=== PATIENT | male | born 1955 | race Asian ===

== ENCOUNTER 2016-05-31 10:29 | Emergency (ER) | payer OTHER ==
[~2016-05-31] VITALS: Ht 180.3 cm; Wt 95.5 kg
[2016-05-31] MEDS ORDERED: LIDOCAINE HCL BUFFERED 1% 20 ML VIAL INJ ONE (12:00)
[2016-05-31] MEDS ORDERED: CEFTAROLINE 600 MG/D5W 250 ML IV ONE (12:30)
[2016-05-31 14:00] VITALS: BP 122/77
== END 2016-05-31 14:02 | disposition home or self-care (01) ==
LOC: EMS 10:32
DX: L02.416 Cutaneous abscess of left lower limb (principal)
CPT/HCPCS: 10060; 96365; 99284; J0712; J3490

== ENCOUNTER 2016-06-02 13:37 | Emergency (ER) | payer OTHER ==
[~2016-06-02] VITALS: Ht 167.6 cm; Wt 210.0 kg
[2016-06-02 14:02] VITALS: BP 133/84
== END 2016-06-02 14:39 | disposition home or self-care (01) ==
LOC: EMS 13:38
DX: Z48.00 Encounter for change or removal of nonsurgical wound dressing (principal)
CPT/HCPCS: 99283

== ENCOUNTER 2024-08-11 17:05 | Emergency (ER) | payer OTHER ==
[~2024-08-11] VITALS: Ht 170.2 cm; Wt 81.8 kg
[2024-08-11 17:08] VITALS: BP 140/98; PULSE 95; RESP 16; TEMP 98.3; O2SAT 98
[2024-08-11] MEDS: OFLOXACIN 0.3% 5 ML OTIC SOLUTION AD ONE (19:38)
[2024-08-11] MEDS: ACETAMINOPHEN 500 MG TABLET PO ONE (19:39)
[2024-08-11] MEDS: IBUPROFEN 400 MG TABLET PO ONE (19:39)
== END 2024-08-11 20:24 | disposition home or self-care (01) ==
LOC: EMS 17:06
DX: S09.90XA Unspecified injury of head, initial encounter (principal); H73.891 Other specified disorders of tympanic membrane, right ear; W22.8XXA Striking against or struck by other objects, initial encounter; Y93.89 Activity, other specified; Y92.89 Other specified places as the place of occurrence of the external cause; Y99.8 Other external cause status
CPT/HCPCS: 99284; Z7502; Z7610